=== PATIENT | male | born 1990 | race American Indian/Alaskan Native ===

== ENCOUNTER 2017-11-25 11:47 | Emergency (ER) | payer OTHER ==
[2017-11-25] MEDS ORDERED: MORPHINE IM ONE (12:27)
[2017-11-25 13:09] VITALS: BP 135/80
[2017-11-25] MEDS ORDERED: BOOSTRIX IM ONE (13:17)
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
== END 2017-11-25 14:55 | disposition home or self-care (01) ==
LOC: ED 11:47
DX: S01.512A Laceration without foreign body of oral cavity, initial encounter (principal); G44.319 Acute post-traumatic headache, not intractable; F12.10 Cannabis abuse, uncomplicated; Y04.2XXA Assault by strike against or bumped into by another person, initial encounter; Y93.89 Activity, other specified; Y99.8 Other external cause status; Y92.89 Other specified places as the place of occurrence of the external cause
CPT/HCPCS: 70450; 70486; 96372; 99284; J2270